=== PATIENT | male | born 1985 | race Caucasian/White ===

== ENCOUNTER 2024-06-23 12:23 | Emergency (ER) | payer SELFPAY ==
[~2024-06-23] VITALS: Ht 182.9 cm; Wt 96.6 kg
[2024-06-23 13:11] VITALS: BP 141/81; PULSE 92; RESP 20; TEMP 99.2; O2SAT 97
[2024-06-23 13:19] VITALS: BP 141/81; PULSE 92; RESP 20; TEMP 99.2; O2SAT 97
[2024-06-23] MEDS ORDERED: TORADOL ONE (13:20)
[2024-06-23 13:22] LABS: BASOPHIL % 0.3 % (0.2-1.2); EOSINOPHIL % 0.3 % (0.0-5.0); HEMATOCRIT(ML) 47.1 % (37.0-53.0); HEMOGLOBIN 15.6 g/dL (13.9-16.3); IG % 0.1 % (0.00-0.50); LYMPHOCYTES # 1.32 10^3/uL1 (1.0-4.8); LYMPHOCYTES % 10.5 % (24.0-44.0); MEAN CORP HGB 26.5 pg (26-34); MEAN CORP HGB CONCENTRATION 33.1 g/dL (33-36.5); MEAN CORP VOLUME 80.1 fL (78-100); MONOCYTES # 0.7 10^3/uL (0.3-0.8); MONOCYTES % 5.6 % (5.0-12.0); NEUTROPHIL # 10.5 10^3/uL (1.8-7.7); NEUTROPHILS % 83.2 % (41.0-85.0); RED BLOOD CELL 5.88 10^6/uL (4.50-5.90); RED CELL DISTRIBUTION WIDTH 12.6 % (11.5-14.5); WHITE BLOOD CELL 12.6 10^3/uL (4.5-11.0)
[2024-06-23] MEDS: TORADOL IM STA (13:24)
[2024-06-23 13:59] LABS: ANION GAP 11.5; BUN/CREATININE RATIO 10.3 (10.0-20.0); CALCIUM 9.1 mg/dL (8.4-10.5); CARBON DIOXIDE 30.2 mmol/L (20.0-32); CREATININE SERUM 0.97 mg/dL (0.59-1.40); EST GFR, NON-AA 85.7 (>/=60); POTASSIUM 3.7 mmol/L (3.6-5.2); URIC ACID 8.4 mg/dL (3.5-7.2)
[2024-06-23 14:08] VITALS: BP 117/68; PULSE 65; RESP 20; O2SAT 94
[2024-06-23 14:15] VITALS: BP 125/70; PULSE 62; RESP 20; TEMP 99.2; O2SAT 97
== END 2024-06-23 14:20 | disposition home or self-care (01) ==
LOC: ER 12:23
DX: M10.9 Gout, unspecified (principal); L08.9 Local infection of the skin and subcutaneous tissue, unspecified; F12.90 Cannabis use, unspecified, uncomplicated
CPT/HCPCS: 99284; 96372; 73630; 85025; 36415; 80048; 84145; 84550; J1885